=== PATIENT | female | born 1980 | race Caucasian/White ===

== ENCOUNTER 2018-09-05 13:20 | Outpatient (CLI) | payer OTHER, SELFPAY ==
[2018-09-05] VITALS (8 sets, daily range): BP systolic 113–142; BP diastolic 66–87; PULSE 68–78; RESP 9–16; TEMP 36.2; O2SAT 97–100
--- NOTE | 2018-09-05 13:40 | DI.RAD.S_ITS ---
PROCEDURE: PAIN L/SI FACET INJ/BLK 1STL INDICATIONS: SPONDYLOSIS FINDINGS: Fluoroscopic spot filming was performed to verify placement of spinal needles at the L4, L5 and S1 level(s), as labeled on the films. Appropriate location(s) of the needle tip(s) was confirmed by injection of iodinated contrast. Dictated by: Bobo George M.D. on 09/05/2018 at 16:49 Approved by: Bobo George M.D. on 09/05/2018 at 16:49
[2018-09-05] MEDS: MIDAZOLAM 5 MG/5 ML VIAL IV (13:58)
[2018-09-05] MEDS: fentaNYL 100 MCG/2 ML INJ 50 MCG IV (13:58)
--- NOTE | 2018-09-05 14:17 | PM.PROC.1 ---
Procedures Date/Time Date of procedure: 09/05/18 Time of procedure: 14:17 General Procedure description: POST OP DIAGNOSIS 1. FACET ARTHROPATHY PROCEDURES 1. Left L4, L5 and S1 MB BLOCKS PHYSICIAN: DO UMM Morrison is referred by Dr. Gagnon for treatment of Left Axial LBP. DESCRIPTION OF PROCEDURE Fluoroscopically guided, contrast-controlled left L4, L5 and S1 medial branch blocks with 0.5cc of 0.5% Marcaine. Following denial of allergy and review of potential side effects and complications, including, but not necessarily limited to, infection, allergic reaction, local tissue breakdown, nerve injury, paralysis, stroke and possible , the patient indicated that the patient understood and agreed to proceed. An informed consent document was signed by the patient, witnessed by a nurse, and placed in the patient's chart. After review of previous anaesthesic history and IV conscious sedation the patient was deemed safe to proceed with todays procedure with IV conscious sedation as ASA class II designation. Safety time-out was performed to confirm patient ID, procedure to be performed and site of procedure. IV sedation was accomplished with a combination of 5mg of Versed and 50mcg of Fentanyl was administered by the RN after DO order, titrated to patient comfort during the course of the procedure while the patient remained responsive to all verbal commands. In the prone position, following sterile prep and drape of the lumbar region, the left L4, L5 and S1 anatomical location of the medial branch of the dorsal ramus was identified fluoroscopically. Subsequently an anesthetic skin wheal using 1% lidocaine solution was initiated at each of the anatomical spots. Subsequently then a 22-gauge 3.5-inch spinal needle was atraumatically introduced and advanced under fluoroscopic guidance at each of the corresponding sites at the left L4, L5 and S1 MB. After negative aspiration, 0.2 cc of Isovue 200 was injected, confirming placement without vascular or intrathecal uptake. Subsequently then 0.5 cc of 0.5% Marcaine solution was injected at each of the corresponding sites at the left L4, L5 and S1 medial branch locations. The patient tolerated the procedure well without signs or symptoms of complications. The patient tolerated the procedure well without signs or symptoms of complications prior to transfer to the recovery area continued monitoring without incident. Post-procedure, the patient was monitored initiating provocative activities to measure the amount of relief from block of the facetogenic pain. The patient reported a VAS of 8 prior to the procedure and a post-procedure VAS of 1. It has been a pleasure to assist in the diagnostic and therapeutic care of your patient. Total Fluoroscopy Time: 24.8 seconds Total Conscious Sedation Time: 24min POST OP INSTRUCTIONS The patient was provided with a Pain Log to complete over the next several hours and subsequent days prior to the patient's follow up with the ordering physician. If the patient has investigator internal affairs relief to the solution applied, then they may be a candidate for medial branch rhizotomy. The patient is aware, was provided, once again, with a Pain Log and will follow up with the referring physician for review and clinical correlation Isauro Fernandez DO Complications: none
--- NOTE | 2018-09-05 14:26 | PC.NURSE ---
pt finished procedure and was awake through the whole thing. she tolerated it well. pt able to get off table on her own and i took her in a wheel chair to pre procedure room where I handed off to Sue CAMARILLO for continued monitoring.
[2018-09-05] MEDS: BETAMETHASONE 30 MG/5 ML MDV 12 MG INJ (14:29)
[2018-09-05] MEDS: IOPAMIDOL 15 ML VIAL 3 ML INJ (14:29)
[2018-09-05] MEDS: BUPIVACAINE 0.5% (PF) VIAL 2 ML INJ (14:29)
--- NOTE | 2018-09-06 13:35 | PC.NURSE ---
post Follow Up call given, message left as pt did not answer.
== END 2018-09-05 14:55 | disposition home or self-care (01) ==
LOC: RAD 13:24
PROVIDERS: Visit Provider Physical Medicine & Rehabilitation
DX: M47.16 Other spondylosis with myelopathy, lumbar region (principal)
CPT/HCPCS: 64493; 99152; J0702; J2250; J3010

== ENCOUNTER 2018-10-25 13:23 | Outpatient (CLI) | payer OTHER, SELFPAY ==
[2018-10-25] VITALS (8 sets, daily range): BP systolic 114–128; BP diastolic 65–88; PULSE 61–93; RESP 16–20; TEMP 37.2; O2SAT 96–100
--- NOTE | 2018-10-25 13:24 | DI.RAD.S_ITS ---
PROCEDURE: PAIN L INTERLAMINAR/CAUDAL INJ INDICATIONS: INTERVERTEBRAL DISC DISPLACEMENT FINDINGS: Fluoroscopic spot filming was performed to verify placement of spinal needles at the L4-L5 level(s), as labeled on the films. Appropriate location(s) of the needle tip(s) was confirmed by injection of iodinated contrast. Dictated by: Bobo George M.D. on 10/25/2018 at 15:44 Approved by: Bobo George M.D. on 10/25/2018 at 15:44
[2018-10-25] MEDS: fentaNYL 100 MCG/2 ML INJ 50 MCG IV (14:10)
[2018-10-25] MEDS: MIDAZOLAM 5 MG/5 ML VIAL IV (14:10)
[2018-10-25] MEDS: BUPIVACAINE 0.5% (PF) VIAL 2 ML INJ (14:17)
[2018-10-25] MEDS: IOPAMIDOL 15 ML VIAL 3 ML INJ (14:17)
[2018-10-25] MEDS: DEXAMETHASONE 10 MG/ML VIAL 20 MG INJ (14:17)
--- NOTE | 2018-10-25 14:19 | PC.NURSE ---
ASSISTING PT OFF TABLE AND TRANSPORTING BY WC TO POST PROC AREA IN STABLE CONDITION
--- NOTE | 2018-10-25 14:24 | P.PCN_ITS ---
Procedures Date/Time Date of procedure: 10/25/18 Time of procedure: 14:23 General Procedure description: PROVIDER: Isauro Fernandez DO Operative Note PREOP DIAGNOSIS 1. HNP WITH RADICULAR FEATURES, 2. MULTILEVEL CENTRAL STENOSIS, POST OP DIAGNOSIS 1. HNP WITH RADICULAR FEATURES, 2. MULTILEVEL CENTRAL STENOSIS PROCEDURES 1. FLUORSCOPICALLY GUIDED CONTRAST CONTROLLED INTERLAMINAR EPIDURAL STEROID INJECTION -L4/5 PHYSICIAN: Isauro Fernandez DO INDICATIONs: Mark is referred for treatment of Bilateral Foraminal Stenosis R>L LE symptoms. FINDINGS Multilevel Central Spinal Stenosis with Nerve Root Compression DESCRIPTION OF PROCEDURE Fluoroscopically guided, contrast-controlled L4/5 translaminar epidural steroid injection. Following denial of allergy and review of potential side effects and complications, including, but not necessarily limited to, infection, allergic reaction, local tissue breakdown, temporary as well as permanent nerve injury, paralysis, stroke and possible , the patient indicated that the patient understood and agreed to proceed. An informed consent document was signed by the patient, witnessed by a nurse, and placed in the patient's chart. Additionally, other treatment options including modalities, medications, and physical therapy were reviewed with the patient. After review of previous anaesthesic history and IV conscious sedation the patient was deemed safe to proceed with todays procedure with IV conscious sedation as ASA class II designation. Safety time-out was performed to confirm patient ID, procedure to be performed and site of procedure. IV sedation was accomplished with a combination of 5mg Versed and 50mcg of Fentanyl was administered by the RN after DO order, titrated to patient comfort during the course of the procedure while the patient remained responsive to all verbal commands In the prone position, following sterile prep and drape of the lumbar region, the L4/5 translaminar space was identified fluoroscopically. The skin was anesthetized via a 25-gauge, 1.5-inch needle with 1% lidocaine solution. At this point, a 22-gauge short bevel spinal needle was atraumatically introduced and advanced under fluoroscopic guidance into the region of the L4/5 translaminar space. Depth was confirmed on lateral view. Radiological data, including multiple fluoroscopic views of the lumbar spine, reveal a spinal needle at the L4/5 translaminar space. Lateral views then show placement of the needle in the epidural space. Subsequent views show contrast material flowing superiorly and inferiorly in the epidural space. No vascular or intrathecal uptake is observed. At this point, using loss of resistance technique with saline and air, the epidural space was entered. This was confirmed following negative aspiration with injection of approximately 1.5 cc of Isovue 200, showing excellent epidural flow without vascular or intrathecal uptake. At this point, 1 cc of 1 % lidocaine solution combined with 3 cc or 20 mg of dexamethasone and 80mg Depo medrol was injected without incident. The patient tolerated the procedure well without signs or symptoms of complications prior to transfer to the recovery area continued monitoring without incident. The patient was then transferred to the recovery area where they were observed for an appropriate period of time after the injection. The patient reported a VAS score of 6 prior to the procedure and a post- procedure VAS of 0. Total Fluoroscopy Time: 11.8 seconds, 8.99 mGy Total Conscious Sedation Time: 24min POST OP INSTRUCTIONS The patient was provided a Pain Log to continue to record their response to the target-specific procedure prior to follow-up visit with their referring physician. Additionally, specific post-injection care instructions and a contact number to our office were provided if concerns arise regarding possible complications associated with the procedure are suspected. Isauro Fernandez, Complications: none
--- NOTE | 2018-10-25 14:48 | PC.NURSE ---
pt returned from procedure room alert and awake, able to move from w/c to chair with standby assist. Resumed monitoring from Sue CAMARILLO.
--- NOTE | 2018-10-25 15:08 | PC.NURSE ---
FENTANYL UNABLE TO SAY NOT GIVEN. MEDICATION NOT GIVEN ON THAT ORDER, WAS A DUPLICATE ORDER.
== END 2018-10-25 15:03 ==
LOC: RAD 13:23
PROVIDERS: Visit Provider Physical Medicine & Rehabilitation
DX: M51.16 Intervertebral disc disorders with radiculopathy, lumbar region (principal); M48.061 Spinal stenosis, lumbar region without neurogenic claudication; M47.27 Other spondylosis with radiculopathy, lumbosacral region
CPT/HCPCS: 62323; 99152; J1100; J2250; J3010

== ENCOUNTER 2018-11-29 14:49 | Outpatient (CLI) | payer OTHER, SELFPAY ==
[2018-11-29] VITALS (9 sets, daily range): BP systolic 104–130; BP diastolic 56–86; PULSE 64–89; RESP 16–20; TEMP 37.2; O2SAT 98–100
--- NOTE | 2018-11-29 14:51 | DI.RAD.S_ITS ---
PROCEDURE: PAIN L/S FACET INJ/BLK 1ST AILYN COMPARISON: None. INDICATIONS: Lumbosacral spondylosis FINDINGS: Needle tip localization along the right aspect of the L5-S1 facet joint area is present, and additional 3 views of imaging show similar positioning of the needle tip on the left. IMPRESSION: Successful needle tip localization bilaterally at L5-S1 4 facet joint localization and injection (presumed steroid injection). Dictated by: Yash Pena M.D. on 11/29/2018 at 16:50 Approved by: Yash Pena M.D. on 11/29/2018 at 16:51
[2018-11-29] MEDS: MIDAZOLAM 5 MG/5 ML VIAL IV (15:33)
[2018-11-29] MEDS: BETAMETHASONE 30 MG/5 ML MDV 12 MG INJ (15:37)
[2018-11-29] MEDS: IOPAMIDOL 15 ML VIAL 3 ML INJ (15:37)
[2018-11-29] MEDS: BUPIVACAINE 0.5% (PF) VIAL 2 ML INJ (15:37)
--- NOTE | 2018-11-29 15:41 | PC.NURSE ---
ASSISTING PT OFF TABLE AND TRANSPORTING TO POST PROC AREA IN STABLE CONDITION
--- NOTE | 2018-11-29 15:45 | P.PCN_ITS ---
Procedures Date/Time Date of procedure: 11/29/18 Time of procedure: 15:43 General Procedure description: PREOP DIAGNOSIS 1. FACET ARTHROPATHY, 2. AXIAL LBP, 3. MULTILEVEL DDD, POST OP DIAGNOSIS 1. FACET ARTHROPATHY, 2. AXIAL LBP, 3. MULTILEVEL DDD, PROCEDURES 1. FLUORSCOPICALLY GUIDED CONTRAST CONTROLLED FACET JOINT INJECTIONS BILATERAL L5/S1 PHUSICIAN: Isauro Fernandez, DO INDICATIONS Flores is referred for treatment of Axial LBP FINDINGS Multilevel Facet Arthropathy with Clinically significant axial LBP DESCRIPTION OF PROCEDURE Fluoroscopically guided, contrast-controlled bilateral L5/S1 facet joint injections. Following denial of allergy and review of potential side effects and complications, including, but not necessarily limited to, infection, allergic reaction, local tissue breakdown, stroke, temporary or permanent nerve injury, paralysis, and possible , the patient indicated that the patient understood and agreed to proceed. An informed consent document was signed by the patient, witnessed by a nurse, and placed in the patient's chart. Additionally, other treatment options including medications, modalities, and physical therapy were reviewed with the patient. After review of previous anaesthesic history and IV conscious sedation the patient was deemed safe to proceed with todays procedure with IV conscious sedation as ASA class II designation. Safety time-out was performed to confirm patient ID, procedure to be performed and site of procedure. IV sedation was accomplished with a combination of 5mg of Versed and 50mcg of Fentanyl was administered by the RN after DO order, titrated to patient comfort during the course of the procedure while the patient remained responsive to all verbal commands In the prone position, following sterile prep and drape of the lumbar region, the posterior aspect of the L5/S1 facet joints were identified fluoroscopically. The skin was anesthetized via a 25-gauge 1.5-inch needle with 1% lidocaine solution into the corresponding facet joints. At this point, a 22-gauge 5-inch spinal needle was atraumatically introduced and advanced under fluoroscopic guidance into the corresponding facet joints. Following negative aspiration, injections of approximately 0.2-cc of Isovue 200 confirmed interarticular placement without vascular uptake. The identical procedure was then performed at the L5/S1 facet joints on the left. Radiological data, including multiple fluoroscopic views of the lumbosacral spine, reveal a spinal needle at the L5/S1 facet joints bilaterally. Subsequent views show flow of contrast material both superiorly and inferiorly within the joint space without vascular or intrathecal uptake. At this point, a total of 0.5 cc including a mixture of 0.25 cc Marcaine and 0.25 cc betamethasone was injected without complication into each of the corresponding facet joints. The patient tolerated the procedure well without signs or symptoms of complications prior to transfer to the recovery area continued monitoring wi thout incident. The patient was then transferred to the recovery area where they were observed for an appropriate period of time after the injection. The patient reported a VAS score of 7 prior to the procedure and a post-procedure VAS of 0. Total Fluoroscopy Time: 21.0 seconds Total conscious sedation time: 24 min POST OP INSTRUCTIONS The patient was provided a Pain Log to continue to record their response to the target-specific procedure prior to follow-up visit with their referring physician. Additionally, specific post-injection care instructions and a contact number to our office were provided if concerns arise regarding possible complications associated with the procedure are suspected. Isauro Fernandez, Complications: none
--- NOTE | 2018-11-29 15:52 | PC.NURSE ---
pt arrived from procedure area via wheelchair awake and alert, able to transfer from w/c to chair with stand by assist. REsumed monitoring from Sue CAMARILLO.
== END 2018-11-29 16:15 ==
LOC: RAD 14:50
PROVIDERS: Visit Provider Physical Medicine & Rehabilitation
DX: M47.817 Spondylosis without myelopathy or radiculopathy, lumbosacral region (principal); M54.5 Low back pain; M51.36 Other intervertebral disc degeneration, lumbar region; M51.37 Other intervertebral disc degeneration, lumbosacral region
CPT/HCPCS: 64493; 99152; J0702; J2250

== ENCOUNTER 2019-01-31 11:24 | Outpatient (CLI) | payer OTHER, SELFPAY ==
[2019-01-31] VITALS (14 sets, daily range): BP systolic 102–129; BP diastolic 61–101; PULSE 60–95; RESP 16–20; TEMP 36.2; O2SAT 98–100
--- NOTE | 2019-01-31 11:25 | DI.RAD.S_ITS ---
PROCEDURE: PAIN L/S MED/LAT N RFA INDICATIONS: VERTEBRAL DISC DISPLACEMENT FINDINGS: Fluoroscopic spot filming was performed to verify placement of spinal needles at the bilateral L4, L5, S1 level(s), as labeled on the films. Appropriate location(s) of the needle tip(s) was confirmed by injection of iodinated contrast. IMPRESSION: Bilateral L4, L5, S1 needle tip localizations for medial branch rhizotomy procedures (6 total). Dictated by: Yash Pena M.D. on 02/05/2019 at 10:53 Approved by: Yash Pena M.D. on 02/05/2019 at 10:54
[2019-01-31] MEDS: fentaNYL 100 MCG/2 ML INJ 50 MCG IV (12:08)
[2019-01-31] MEDS: MIDAZOLAM 5 MG/5 ML VIAL IV (12:08)
[2019-01-31] MEDS: LIDOCAINE 1% 20 ML INJ 10 ML INJ (12:16)
[2019-01-31] MEDS: BUPIVACAINE 0.5% (PF) VIAL 5 ML INJ (12:17)
[2019-01-31] MEDS: BETAMETHASONE 30 MG/5 ML MDV 12 MG INJ (12:17)
--- NOTE | 2019-01-31 13:02 | PC.NURSE ---
Pt tolerated procedure. Able to get off table with standby assist. Transferred pt via wheelchair to pre procedure room for continued monitoring with Sue CAMARILLO.
--- NOTE | 2019-01-31 13:13 | PM.PROC.1 ---
Procedures Date/Time Date of procedure: 01/31/19 Time of procedure: 13:13 General Procedure description: PREOP DIAGNOSIS 1. RECALCITRANT FACET ARTHROPATHY, POST OP DIAGNOSIS 1. RECALCITRANT FACET ARTHROPATHY PROCEDURES 1. BILATERAL L4 AND L5 MEDIAL BRANCH RADIOFREQUENCY NEUROTOMY AND S1 DORSAL RAMUS BRANCH RADIOFREQUENCY NEUROTOMY, PHYSICIAN: Isauro Fernandez DO INDICATIONS: Mark is referred for treatment of facet arthropathy. DESCRIPTION OF PROCEDURE Right L4 and L5 medial branch radiofrequency neurotomy and right S1 dorsal ramus radiofrequency neurotomy under fluoroscopy with conscious sedation. The patient is well known to this clinic having undergone previous facet injections with good but temporary relief. The patient has experienced appropriate, concordant relief with previous facet and median branch blocks but the patient's pain has been recalcitrant to further conservative measures. Therefore, based upon the patient's relief and persistent symptoms, the patient is considered an appropriate candidate for facet rhizotomy. All of the patient's questions regarding the risks versus benefits of the procedure, including, but not limited to, bleeding, infection, temporary as well as lasting nerve injury, paralysis, stroke, and , as well treatment alternatives were answered to satisfaction. After obtaining informed consent, denial of pertinent drug allergies, as well as being made aware of the potential risks of bleeding, infection, spinal cord trauma, paralysis, temporary and permanent nerve damage, seizure, stroke, and possible , the patient was brought to the fluoroscopy suite and positioned prone on the fluoroscopy table. The lumbar region was prepped with Betadine and covered with a fenestrated drape in the usual sterile fashion. Appropriate monitors applied including pulse oximeter, pulse, and blood pressure for regular monitoring throughout the procedure. After review of previous anaesthesic history and IV conscious sedation the patient was deemed safe to proceed with todays procedure with IV conscious sedation as ASA class II designation. Safety time-out was performed to confirm patient ID, procedure to be performed and site of procedure. IV sedation was accomplished with a combination of 5mg of Versed and 100mcg of Fentanyl administered by the RN after DO order, titrated to patient comfort during the course of the procedure while the patient remained responsive to all verbal commands. After local infiltration using 1% lidocaine, under fluoroscopic guidance, a 10-cm RF insulated needle with a 10-mm active tip was positioned parallel to the junction of the right sacral ala and the superior articulating process where the S1 dorsal ramus resides. Needle placement was confirmed with sensory stimulation at 50 Hz, with motor stimulation of .5v on the right which produced local stimulation without radicular component. The stimulation was then increased to 1.5v with, once again, only local multifidus stimulation without radicular component. This was then followed by two discreet lesions performed at 80 degrees Celsius for 90 seconds each. The needle was then removed and the identical procedure was performed along the length of the right L5 medial branch with motor stimulation at .7v on the right. The identical procedure was once again performed along the length of the right L4 medial branch with motor stimulation of .5v on the right. The identical procedure was repeated on the left. The patient tolerated the procedure well without signs or symptoms of complications prior to transfer to the recovery area continued monitoring without incident. The patient was then transferred to the recovery area where they were observed for an appropriate period of time after the injection. The patient reported a VAS score of 9 prior to the procedure and a post-procedure VAS of 0. Total Fluoroscopy Time: 22.7 seconds Total Conscious Sedation Time: 34min POST OP INSTRUCTIONS The patient was provided a Pain Log to continue to record the patient's response to the target-specific procedure prior to the patient's follow-up visit with the referring physician. Additionally, specific post-injection care instructions and a contact number to our office were provided if concerns arise regarding possible complications associated with the procedure are suspected. Isauro Fernandez DO Complications: none
--- NOTE | 2019-01-31 13:14 | PC.NURSE ---
ACCEPTED CARE OF PT IN POST PROC AREA. PT NOTED TO BE A&OX4, SOBBING IN PAIN AND STIFF UPON TRANSFER FROM WHEELCHAIR TO RECLINER. WILL NOTIF
--- NOTE | 2019-01-31 13:40 | PC.NURSE ---
PT NOW SLEEPING COMFORTABLY.
--- NOTE | 2019-01-31 13:49 | PC.NURSE ---
PT NOW A&OX4, CALM AND DRINKING WATER AND EATING SNACK.
--- NOTE | 2019-01-31 14:08 | PC.NURSE ---
PT A&OX4, STEADY ON FEET AND STATING STRONGLY I JUST WANT TO GO HOME. PT CLINICALLY STABLE AND FULLY AWAKE. MADE NURSING DECISION THAT DUE TO PT'S MENTAL HEALTH HISTORY, IT WAS BETTER TO ESCORT HER TO FRIEND'S CAR AND DISCHARGE HER THAN TO INSIST SHE WAIT TO SEE DR. DANIEL IN POST PROC AREA AGAIN. DR. DANIEL HAS ALREADY EVALUATED HER ONCE. PT AT ALL TIMES IN MEDICALLY STABLE CONDITION. ESCORTED HER BY WHEELCHAIR TO CAR AND PT TRANSFERED WITHOUT INCIDENT INTO POV.
== END 2019-01-31 14:12 | disposition home or self-care (01) ==
LOC: RAD 11:25
PROVIDERS: Visit Provider Physical Medicine & Rehabilitation
DX: M47.816 Spondylosis without myelopathy or radiculopathy, lumbar region (principal); M47.817 Spondylosis without myelopathy or radiculopathy, lumbosacral region
CPT/HCPCS: 64635; 64636; 99152; 99153; J0702; J2250; J3010

== ENCOUNTER → 2019-02-28 12:50 | Outpatient (CLI) | payer OTHER, SELFPAY ==
--- NOTE | 2019-02-28 12:53 | DI.RAD.S_ITS ---
PROCEDURE: XR CERVICAL SPINE 4V OR 5V INDICATIONS: NECK PAIN TECHNIQUE: 5 views of the cervical spine acquired. COMPARISON: [facility], , SPINE CERVICAL MIN 4VW, 10/12/2012, 11:00. FINDINGS: Bones: No fractures or dislocations to the C7-T1 level. Postsurgical changes are redemonstrated status post ACDF at C5-C6. There is minimal retrolisthesis at C4-C5 which appears new from the prior study. Mild disc space narrowing also demonstrated at C4-C5, increased from the prior study. Oblique images demonstrate minimal bilateral bony neuroforaminal narrowing at C4-C5. Soft tissues: No prevertebral soft tissue swelling. IMPRESSION: 1. Minimal arthrocentesis at C4-C5 with mild disc space narrowing appear new from the prior study. 2. Minimal bilateral bony neuroforaminal narrowing at C4-C5. Dictated by: Deandre Ledbetter M.D. on 02/28/2019 at 14:49 Approved by: Deandre Ledbetter M.D. on 02/28/2019 at 14:52
--- NOTE | 2019-02-28 12:53 | DI.RAD.S_ITS ---
PROCEDURE: XR ELBOW LT MIN 3V INDICATIONS: PAIN IN LEFT ELBOW TECHNIQUE: 3 views of the elbow were acquired. COMPARISON: [facility], , ELBOW COMP MIN 3VW (LT), 10/12/2012, 11:00. FINDINGS: Bones: No fractures or dislocations. There are mild degenerative changes with minimal osteophytosis of the radial head and proximal ulnar. There is a small ossicle suggestive of a joint body adjacent to the radial head measuring up to 5 mm. No suspicious bony lesions. Soft tissues: No elbow joint effusion. No suspicious soft tissue calcifications. IMPRESSION: 1. 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 2. Suspected small joint body. Dictated by: Deandre Ledbetter M.D. on 02/28/2019 at 14:47 Approved by: Deandre Ledbetter M.D. on 02/28/2019 at 14:49
== END ==
PROVIDERS: Visit Provider Physical Medicine & Rehabilitation
DX: M25.522 Pain in left elbow (principal); M19.022 Primary osteoarthritis, left elbow; M54.2 Cervicalgia; M48.02 Spinal stenosis, cervical region; Z98.1 Arthrodesis status
CPT/HCPCS: 72050; 73080

== ENCOUNTER 2019-05-03 06:27 | Outpatient (CLI) | payer OTHER, SELFPAY ==
[2019-05-03] VITALS (9 sets, daily range): BP systolic 98–117; BP diastolic 45–77; PULSE 67–79; RESP 16; TEMP 36.2; O2SAT 100
--- NOTE | 2019-05-03 06:31 | DI.RAD.S_ITS ---
PROCEDURE: PAIN L/S MED/LAT N RFA INDICATIONS: SPONDYLOSIS FINDINGS: Fluoroscopic spot filming was performed to verify placement of spinal needles at the left L4, L5 and S1 level(s), as labeled on the films. Appropriate location(s) of the needle tip(s) was confirmed by injection of iodinated contrast. IMPRESSION: Fluoroscopy for needle placement. Dictated by: Raj Gtz M.D. on 05/03/2019 at 9:35 Approved by: Raj Gtz M.D. on 05/03/2019 at 9:36
[2019-05-03] MEDS: MIDAZOLAM 5 MG/5 ML VIAL IV (07:15)
[2019-05-03] MEDS: fentaNYL 100 MCG/2 ML INJ 50 MCG IV (07:15)
[2019-05-03] MEDS: BUPIVACAINE 0.5% (PF) VIAL 2 ML INJ (07:23)
[2019-05-03] MEDS: BETAMETHASONE 30 MG/5 ML MDV 12 MG INJ (07:27)
--- NOTE | 2019-05-03 07:37 | PC.NURSE ---
Pt tolerated procedure well. Pt able to get off table with 2 person minimal assist. Transferred pt via wheelchair to pre procedure room for continued monitoring with Sue CAMARILLO.
--- NOTE | 2019-05-03 07:45 | P.PCN_ITS ---
Procedures Date/Time Date of procedure: 05/03/19 Time of procedure: 07:44 General Procedure description: PREOP DIAGNOSIS 1. RECALCITRANT FACET ARTHROPATHY, POST OP DIAGNOSIS 1. RECALCITRANT FACET ARTHROPATHY, PROCEDURES 1. LEFTT L4 AND L5 MEDIAL BRANCH RADIOFREQUENCY NEUROTOMY AND LEFT S1 DORSAL RAMUS RADIOFREQUENCY NEUROTOMY, PHYSICIAN: DO [facility] Mark is referred for treatment of facet arthropathy. DESCRIPTION OF PROCEDURE Left L4 and L5 medial branch radiofrequency neurotomy and left S1 dorsal ramus branch radiofrequency neurotomy under fluoroscopy with conscious sedation. The patient is well known to this clinic having undergone previous facet injections with good but temporary relief. The patient has experienced appropriate, concordant relief with previous facet and median branch blocks but the patient's pain has been recalcitrant to further conservative measures. Therefore, based upon the patient's relief and persistent symptoms, the patient is considered an appropriate candidate for facet rhizotomy. All of the patient's questions regarding the risks versus benefits of the procedure, including, but not limited to, bleeding, infection, temporary as well as lasting nerve injury, paralysis, stroke, and , as well treatment alternatives were answered to satisfaction. After obtaining informed consent, denial of pertinent drug allergies, as well as being made aware of the potential risks of bleeding, infection, spinal cord trauma, paralysis, temporary and permanent nerve damage, seizure, stroke, and possible , the patient was brought to the fluoroscopy suite and positioned prone on the fluoroscopy table. The lumbar region was prepped with Betadine and covered with a fenestrated drape in the usual sterile fashion. Appropriate monitors applied including pulse oximeter, pulse, and blood pressure for regular monitoring throughout the procedure. IV sedation was accomplished with a combination of 4mg of Versed and 50mcg of Fentanyl titrated to patient comfort during the course of the procedure while the patient remained responsive to all verbal commands. After local infiltration using 1% lidocaine, under fluoroscopic guidance, a 10- cm RF insulated needle with a 10-mm active tip was positioned parallel to the junction of the left sacral ala and the superior articulating process where the S1 dorsal ramus resides. Needle placement was confirmed with sensory stimulation at 50 Hz, with motor stimulation of .5v on the left which produced local stimulation without radicular component. The stimulation was then increased to 1.5v with, once again, only local multifidus stimulation without radicular component. This was then followed by two discreet lesions performed at 80 degrees Celsius for 90 seconds each. The needle was then removed and the identical procedure was performed along the length of the left L5 medial branch with motor stimulation at .7v on the leftt. The identical procedure was once again performed along the length of the left L4 medial branch with motor stimulation of .5v on the left. The patient tolerated the procedure well without signs or symptoms of complications prior to transfer to the recovery area continued monitoring without incident. The patient was then transferred to the recovery area where they were observed for an appropriate period of time after the injection. The patient was then transferred to the recovery area where they were observed for an appropriate period of time after the injection. The patient reported a VAS score of 9 prior to the procedure and a post- procedure VAS of 0. Total Fluoroscopy Time: 22.7 seconds Total Conscious Sedation Time: 34min POST OP INSTRUCTIONS The patient was provided a Pain Log to continue to record the patient's response to the target-specific procedure prior to the patient's follow-up visit with the referring physician. Additionally, specific post-injection care instructions and a contact number to our office were provided if concerns arise regarding possible complications associated with the procedure are suspected. Isauro Fernandez, Complications: none
[2019-05-03] MEDS: LIDOCAINE 1% 20 ML INJ 10 ML INJ (07:51)
[2019-05-03] MEDS: SODIUM CHLORIDE 0.9% 1,000 ML 1000 ML IV (08:01)
== END 2019-05-03 08:49 | disposition home or self-care (01) ==
LOC: RAD 06:28
PROVIDERS: Visit Provider Physical Medicine & Rehabilitation
DX: M47.27 Other spondylosis with radiculopathy, lumbosacral region (principal); Z98.1 Arthrodesis status
CPT/HCPCS: 64635; 64636; 99152; 99153; J0702; J2250; J3010

== ENCOUNTER 2019-06-05 07:26 | Outpatient (CLI) | payer OTHER, SELFPAY ==
[2019-06-05] VITALS (8 sets, daily range): BP systolic 97–138; BP diastolic 65–83; PULSE 62–77; RESP 14–16; TEMP 36.4; O2SAT 96–100
--- NOTE | 2019-06-05 07:28 | DI.RAD.S_ITS ---
PROCEDURE: PAIN C/T INTERLAMINAR INJECT INDICATIONS: SPONDYLOSIS FINDINGS: Fluoroscopic spot filming was performed to verify placement of spinal needles at the C6-7 level(s), as labeled on the films. Appropriate location(s) of the needle tip(s) was confirmed by injection of iodinated contrast. There is prior anterior fusion at C5-6 level. IMPRESSION: Fluoroscopy guidance was provided intraoperatively for C6-C7 translaminar epidural steroid injection. Dictated by: Bernard Ocasio M.D. on 06/05/2019 at 11:46 Approved by: Bernard Ocasio M.D. on 06/05/2019 at 11:46
[2019-06-05] MEDS: MIDAZOLAM 5 MG/5 ML VIAL IV (08:38)
[2019-06-05] MEDS: fentaNYL 100 MCG/2 ML INJ 50 MCG IV (08:39)
[2019-06-05] MEDS: IOPAMIDOL 15 ML VIAL 3 ML INJ (08:42)
[2019-06-05] MEDS: DEXAMETHASONE 10 MG/ML VIAL 30 MG INJ (08:42)
--- NOTE | 2019-06-05 08:45 | PC.NURSE ---
ASSISTING PT OFF TABLE AND TRANSPORTING TO POST PROC AREA IN STABLE CONDITION
--- NOTE | 2019-06-05 08:51 | PM.PROC.1 ---
Procedures Date/Time Date of procedure: 06/05/19 Time of procedure: 08:51 General Procedure description: PREOP DIAGNOSIS 1. CERVICAL STENOSIS, 2. CERVICAL HNP WITH UPPER EXTREMITY RADICULAR FEATURES, POST OP DIAGNOSIS 1. CERVICAL STENOSIS, 2. CERVICAL HNP WITH UPPER EXTREMITY RADICULAR FEATURES, PROCEDURES 1. FLUORSCOPICALLY GUIDED CONTRAST CONTROLLED INTERLAMINAR EPIDURAL STEROID INJECTION - C6/7 TL NTAI PHYSICIAN: Isauro Fernandez DO INDICATIONS Mark is referred for treatment of Cervical HNP with Upper Extremity Paresthesias. FINDINGS Cervical Stenosis due to disc deterioration and nerve root irritation and nerve root irritation DESCRIPTION OF PROCEDURE Fluoroscopically guided, contrast-controlled C6/7 translaminar epidural steroid injection with conscious sedation. Following review of allergy and review of potential side effects and complications, including, but not necessarily limited to, infection, allergic reaction, local tissue breakdown, temporary as well as permanent nerve injury, stroke, paralysis, and possible , the patient indicated that patient understood and agreed to proceed. An informed consent document was signed by the patient, witnessed by a nurse, and placed in the patient's chart. Additionally, other treatment options including modalities, medications, and physical therapy were reviewed with the patient. After review of previous anaesthesic history and IV conscious sedation the patient was deemed safe to proceed with todays procedure with IV conscious sedation as ASA class II designation. Safety time-out was performed to confirm patient ID, procedure to be performed and site of procedure. IV sedation was accomplished with a combination of 5mg of Versed and 50mcg of Fentanyl administered by the RN after DO order, titrated to patient comfort during the course of the procedure while the patient remained responsive to all verbal commands. In the prone position, following sterile prep and drape of the cervical region, the C6/7 translaminar space was identified fluoroscopically. The skin was anesthetized via a 25-gauge 1.5-inch needle with 1% lidocaine solution. At this point, a 25-gauge, 2.5-inch short bevel spinal needle was atraumatically introduced and advanced under fluoroscopic guidance into epidural space at the C6/7 translaminar space. Depth was confirmed on lateral view. Radiological data, including multiple fluoroscopic views of the cervical spine, reveal a spinal needle at the C6/7 translaminar space. Lateral views then show placement of the needle in the epidural space. Subsequent views show contrast material flowing superiorly and inferiorly in the epidural space. DSA fluoroscopy with live contrast injection, once again, confirmed no vascular or intrathecal uptake. At this point, using loss of resistance technique with saline and air, the epidural space was entered. Following negative aspiration, injection of approximately 1.5 cc of Isovue-200 with live fluoroscopy in the AP view confirmed epidural flow in the epidural space without vascular or intrathecal uptake observed. Subsequently, a test dose of 1 cc of 1% lidocaine solution was injected and patient was observed for two minutes without signs or symptoms of complications, including abdominal pain, shortness of breath, bilateral upper or lower extremity weakness, nausea and vomiting, prior to steroid injection. At this point, 2cc or 20mg of dexamethasone was then injected without incident. The patient tolerated the procedure well without signs or symptoms of complications prior to being transferred to the recovery area for further monitoring, The patient was then transferred to the recovery area where they were observed for an appropriate period of time after the injection. The patient reported a VAS score of 6 prior to the procedure and a post-procedure VAS of 0. Total Fluoroscopy Time: 37.0 seconds Total Conscious Time: 24min POST OP INSTRUCTIONS The patient was provided a Pain Log to continue to record their response to the target-specific procedure prior to follow-up visit with the referring provider. Additionally, specific post-injection care instructions and a contact number to our office were provided if concerns arise regarding possible complications associated with the procedure are suspected. Isauro Fernandez DO Complications: none
--- NOTE | 2019-06-05 08:55 | PC.NURSE ---
Pt returned from procedure via wheelchair awake and alert, able to get from w/c to chair standby assist. Resumed monitoring from Sue CAMARILLO.
== END 2019-06-05 09:33 ==
LOC: RAD 07:26
PROVIDERS: Visit Provider Physical Medicine & Rehabilitation
DX: Z98.1 Arthrodesis status (principal)
CPT/HCPCS: 62321; 99152; J1100; J2250; J3010